=== PATIENT | female | born 1955 | race Caucasian/White ===

== ENCOUNTER → 2020-02-28 16:45 | Outpatient (CLI) | payer OTHER, SELFPAY ==
--- NOTE | ~2020-02-28 | XR_ITS ---
XR knee LT 3V DATE: 02/28/2020 17:16 INDICATION: Injury, pain TECHNIQUE: [place], AP, lateral views COMPARISON: None FINDINGS: There is prominent distention of the suprapatellar bursa, consistent with knee joint effusi on. There is a subtle vertical linear lucency overlying the lateral tibial plateau, suggesting a nondispl aced lateral tibial plateau fracture. Consider further evaluation with MRI of the knee. No other fracture or dislocation, periosteal reaction or bone destruction. No radiopaque intra-artic ular loose body or chondrocalcinosis. IMPRESSION: Knee joint effusion; suspected nondisplaced lateral tibial plateau fracture Reviewed, dictated and finalized at location A.
== END ==
PROVIDERS: PCP Family Medicine; Visit Provider Physician Assistant
DX: S89.90XA Unspecified injury of unspecified lower leg, initial encounter (principal); X58.XXXA Exposure to other specified factors, initial encounter; M25.462 Effusion, left knee
CPT/HCPCS: 73562

== ENCOUNTER → 2021-07-02 03:21 | Outpatient (CLI) | payer OTHER, SELFPAY ==
[2021-07-02 15:25] LABS: Influenza Control Positive
[2021-07-03 14:36] LABS: SARS-CoV-2 RNA PCR Positive
== END ==
PROVIDERS: PCP Family Medicine; Visit Provider Physician Assistant
DX: U07.1 COVID-19 (principal)
CPT/HCPCS: 87804; C9803; U0003; U0005

== ENCOUNTER 2021-10-25 11:08 | Emergency (ER) | payer OTHER, SELFPAY ==
[2021-10-25 11:15] VITALS: BP 169/84; PULSE 95; RESP 18; TEMP 36.9; O2SAT 100
--- NOTE | 2021-10-25 11:16 | ED.DENTAL ---
HPI - Dental/Oral General Chief complaint: Dental/Oral Stated complaint: face is swollen Time Seen by Provider: 10/25/21 11:17 Source: patient, RN notes reviewed and old records reviewed Mode of arrival: ambulatory Limitations: no limitations History of Present Illness HPI Narrative: 66-year-old female who presents to [facility] care with complaints of facial swelling and problems with dental abscess of front left tooth. Patient states that she broke off her tooth on the 26 of September and saw her dentist with in a few days and was told that she had an abscess in her gum and was placed on an antibiotic of Amoxicillin for 10 days which she completed.She reports that she finished antibiotics about 1 week ago. Last night she noted swelling to her left side of face and this morning swelling is worse with some tenderness to gum around broken off tooth.She state also that she has some pain and pressure to her face and has been taking Advil cold and sinus thinking she might have start of sinus infections also. Patient denies any fevers chills or sweats, denies any difficulty with her breathing or with swallowing. MD Complaint: tooth injury Location: Tooth # (#10) Onset (ago): day(s) (broke off tooth September 26) Treatment prior to arrival: other (tylenol cold and sinusc ompleted RX of amoxicillin) Related Data Home Medications Medication Instructions Recorded Confirmed aspirin 81 mg tablet,delayed 81 mg PO DAILY 07/03/20 01/01/21 release coenzyme Q10 10 mg capsule 10 mg PO ONCE 07/03/20 01/01/21 multivitamin 1 tablet PO DAILY 07/03/20 01/01/21 vitamin E 200 unit capsule 200 unit PO DAILY 10/09/20 01/01/21 Allergies Allergy/AdvReac Type Severity Reaction Status Date / Time No Known Allergies Allergy Verified 01/01/21 10:13 Review of Systems Review of Systems: CONSTITUTIONAL: Denies fever, chills, or sweats. EYES: Denies visual changes, redness, or discharge. ENT: Denies rhinorrhea, congestion, sore throat, or otalgia, positive for swelling to left side of face and broken off tooth in left upper front with swelling and redness of gum, metal post noted in gum. CARDIOVASCULAR: Denies chest pain, palpitations, or edema. RESPIRATORY: Denies cough or dyspnea. GASTROINTESTINAL: Denies abdominal pain, nausea, vomiting, or diarrhea. GENITOURINARY: Denies dysuria or hematuria. SKIN: Denies rash or itching. MUSCULOSKELETAL: Denies back pain, joint pain, or myalgia. NEUROLOGIC: Denies headache, numbness, or weakness. PSYCHIATRIC: Positive for history anxiety or depression. All systems reviewed & are unremarkable except as noted in HPI and below PMFSH Past Medical History Medical History Anxiety Arthritis Closed fracture of lateral portion of left tibial plateau Essential hypertension Hypothyroidism Left knee pain Mitral valve prolapse Mixed hyperlipidemia Recurrent major depressive disorder, in partial remission Seasonal allergies Shortness of breath Tobacco abuse Surgical History Surgical History H/O colonoscopy H/O foot surgery History of parathyroid surgery Family History Family History Other Arthritis Heart disease Hypertension Social History Social History Smoking packs per day: 0.5 Smoking cigarettes per day: 10.0 Years smoked: 40 Smoking pack-years: 20.00 Tobacco type: cigarettes Second hand tobacco smoke exposure: Yes Alcohol intake: current Alcohol use details: rare Substance use: never Substance use type: does not use Gender identity (if verbalized by the patient): Female Comments At time of signature, agree with nursing past medical, surgical, social and family history. There is no relevant family history pertinent to the presenting complaint Exam Narrative: GENERAL
== END 2021-10-25 11:48 | disposition home or self-care (01) ==
PROVIDERS: Emergency Provider Registered Nurse; PCP Family Medicine
DX: K04.7 Periapical abscess without sinus (principal); R22.0 Localized swelling, mass and lump, head; Z87.81 Personal history of (healed) traumatic fracture; I10 Essential (primary) hypertension; E03.9 Hypothyroidism, unspecified; E78.2 Mixed hyperlipidemia; Z79.01 Long term (current) use of anticoagulants; F17.210 Nicotine dependence, cigarettes, uncomplicated
CPT/HCPCS: 99213; G0463

== ENCOUNTER 2022-02-11 10:22 | Outpatient (CLI) | payer OTHER, SELFPAY ==
--- NOTE | ~2022-02-11 | MM_ITS ---
EXAMINATION: MM screening melquiades BI w bailey HISTORY: Screening mammogram TECHNIQUE: Craniocaudal and mediolateral oblique 3-D tomosynthesis images were obtained and synthetic 2-D images were generated. CAD analysis was submitted and interpreted. COMPARISON 07/18/2014 bilateral screening mammogram BREAST PARENCHYMAL COMPOSITION: There are scattered areas of fibroglandular density. FINDINGS: Stable fibroglandular asymmetry. Occasional benign calcifications. There is no evidence of suspicious mass, calcification, or architectural distortion to suggest malignancy in either breast. T here has been no suspicious interval change. IMPRESSION: 1. No mammographic evidence of malignancy. 2. Recommend routine screening mammography in one year. BI-RADS Category 2: Benign finding(s). Reviewed, dictated and finalized at location A.
== END 2022-02-11 10:23 | disposition home or self-care (01) ==
PROVIDERS: PCP Family Medicine; Visit Provider Family Medicine
DX: Z12.31 Encounter for screening mammogram for malignant neoplasm of breast (principal)
CPT/HCPCS: 77063; 77067

== ENCOUNTER 2022-10-21 09:52 | Outpatient (CLI) | payer OTHER, SELFPAY ==
--- NOTE | ~2022-10-21 | CT_ITS ---
EXAMINATION: CT lung screening DATE: 10/21/2022 10:15 INDICATION: Personal history nicotine dependence, current smoker with 44 pack year history TECHNIQUE: Computed tomography (CT) of the chest was performed without intravenous contrast. The dose -length product (DLP) was 72.63 mGy-cm. Automated exposure control and iterative reconstruction techn ique were employed. COMPARISON: None FINDINGS: There is mild emphysema. There is a 2 mm nodule of the right upper lobe. There is mild depe ndent atelectasis. No pleural effusion or pneumothorax. No pathologically enlarged thoracic lymph nod es are identified. The heart size is normal. There is moderate thoracic spondylosis. Low-density mas ses of the left adrenal gland, measuring up to 2.5 cm, are consistent with adenomas. IMPRESSION: 1. Lung-RADS category 2: Benign appearance or behavior. Continue annual screening with noncontrast lo w-dose chest CT in 12 months. Reviewed, dictated and finalized at location B. IMPRESSION: 1. Lung-RADS category 2: Benign appearance or behavior. Continue annual screeni ng with noncontrast low-dose chest CT in 12 months.
== END 2022-10-21 09:53 | disposition home or self-care (01) ==
PROVIDERS: PCP Family Medicine; Visit Provider Physician Assistant Medical
DX: Z12.2 Encounter for screening for malignant neoplasm of respiratory organs (principal); F17.210 Nicotine dependence, cigarettes, uncomplicated
CPT/HCPCS: 71271

== ENCOUNTER 2023-11-17 11:24 | Outpatient (CLI) | payer OTHER, SELFPAY ==
--- NOTE | ~2023-11-17 | CT_ITS ---
CT Scan of the Chest without Contrast: Clinical Indication: Lung cancer screening, nicotine dependence Technique: Contiguous sections were acquired throughout the chest without intravenous contrast. Dose reduction technique was used on this scan by utilizing automated exposure control and iterative recon struction technique. The dose-length product (DLP) was 99.09 mGy-cm. COMPARISON: 10/21/2022 Findings: There is no evidence of any significant mediastinal, hilar or axillary lymphadenopathy. The mediastin al soft tissues appear normal. There is no evidence of pleural or pericardial effusion. The lungs are clear. No pulmonary nodules or infiltrates are noted. Images through the upper abdomen reveal stable bilateral low-density adrenal nodules, compatible with adenomas.. Impression: Lung RADS 1: Negative. 12 month follow-up screening CT advised. Reviewed, dictated and finalized at location . Impression: Lung RADS 1: Negative. 12 month follow-up screening CT advised.
== END 2023-11-17 11:25 | disposition home or self-care (01) ==
PROVIDERS: PCP Family Medicine; Visit Provider Family Medicine
DX: Z12.2 Encounter for screening for malignant neoplasm of respiratory organs (principal); Z87.891 Personal history of nicotine dependence
CPT/HCPCS: 71271

== ENCOUNTER 2024-05-03 09:56 | Outpatient (CLI) | payer OTHER, SELFPAY ==
--- NOTE | ~2024-05-03 | MM_ITS ---
EXAMINATION: MM screening melquiades BI w bailey HISTORY: Screening TECHNIQUE: Craniocaudal and mediolateral oblique 3-D tomosynthesis images were obtained and synthetic 2-D images were generated. CAD analysis was submitted and interpreted. COMPARISON: Comparison to multiple prior studies sequentially, with oldest reviewed study dated 07/18. BREAST PARENCHYMAL COMPOSITION: Not dense: There are scattered areas of fibroglandular density. FINDINGS: There is no evidence of suspicious mass, calcification, or architectural distortion to sugg est malignancy in either breast. There has been no suspicious interval change. IMPRESSION: 1. No mammographic evidence of malignancy. 2. Recommend routine screening mammography in one year. BI-RADS Category 1: Negative Reviewed, dictated and finalized at location B. IC PHYSICIAN
== END 2024-05-03 09:57 | disposition home or self-care (01) ==
LOC: ANHIMG 09:57
PROVIDERS: PCP Family Medicine; Visit Provider Physician Assistant Medical
DX: Z12.31 Encounter for screening mammogram for malignant neoplasm of breast (principal)
CPT/HCPCS: 77063; 77067

== ENCOUNTER 2024-07-12 09:03 | Outpatient (CLI) | payer OTHER, SELFPAY ==
--- NOTE | ~2024-07-12 | DEXA_ITS ---
Bone Density Report Name: ARTHUR VIDES Age: 68 Sex: Female Ethnicity: White Date of : 1955 Indication: postmenopausal; screening for osteoporosis; height loss; Referring Provider: NICOLE LEIJA Study: Bone densitometry was performed. Exam Date: July 12, 2024 Accession number: [id number] Bone Density: Region BMD T-score Z-score Classification AP Spine(L1-L4) 0.902 -1.3 0.6 Osteopenia Femoral Neck (Left) 0.714 -1.2 0.4 Osteopenia Total Hip (Left) 0.811 -1.1 0.3 Osteopenia Femoral Neck (Right) 0.673 -1.6 0.1 Osteopenia Total Hip (Right) 0.787 -1.3 0.1 Osteopenia Total Hip Mean 0.799 -1.2 0.2 Osteopenia World Health Organization criteria for BMD impression classify patients as: Normal (T-score at or above -1.0), Osteopenia (T-score between -1.0 and -2.5), or Osteoporosis (T-score at or below -2.5). 10-year Fracture Risk(1): Major Osteoporotic Fracture 9.6% Hip Fracture 1.9% Reported Risk Factors: [place] (), Neck BMD=0.673, BMI=29.1, smoking (1) FRAX(R) Version 3.08. Fracture probability calculated for an untreated patient. Fracture probability may be lower if the patient has received treatment. Clinical Information Provided by Patient: Smokes Patient maximum height was 65.0 Menopause Age: 51 No regular weight bearing exercise Drinks caffeinated beverages Onset of menses at age 15 Number of children 0 Impression: The patient has low bone mass, based on the Right Femoral Neck T-score. The patient has an estimated ten-year risk of hip fracture of 1.9% and an estimated ten-year risk of major fracture of 9.6%, based on the WHO FRAX algorithm. The patient has risk factors, including: smoking. Discussion: BONE DENSITY IS LOW AT ONE OR MORE SKELETAL SITES. This patient's lowest T-score is low at one or more skeletal sites. It meets the World Health Organization's (WHO) criteria for ?low bone mass? (T-score between -1.0 and -2.5). The patient's 10-year risk of fracture as calculated by FRAX is less than the threshold where pharmacological therapy is recommended by the National Osteoporosis Foundation (NOF). However, all treatment decisions require clinical judgment and consideration of individual patient factors, including patient preferences, comorbidities, previous drug use, risk factors not captured in the FRAX model (e.g., frailty, falls, vitamin D deficiency, increased bone turnover, interval significant decline in bone density) and possible under or overestimation of fracture risk by FRAX. The patient should follow a healthful lifestyle (good nutrition with adequate calcium and vitamin D, and appropriate weight-bearing exercise). Follow-Up: Consider repeating this study in 2 to 3 years to reassess this patient's status, or sooner if there is some new clinical indication. Reported by: THERESA on 07/12/2024 9:37:00 AM. Reviewed, dictated and finalized at location AHali LOWE
== END 2024-07-12 09:04 | disposition home or self-care (01) ==
LOC: ANHIMG 09:09
PROVIDERS: PCP Family Medicine; Visit Provider Family Medicine
DX: Z78.0 Asymptomatic menopausal state (principal); M85.88 Other specified disorders of bone density and structure, other site; M85.852 Other specified disorders of bone density and structure, left thigh; M85.851 Other specified disorders of bone density and structure, right thigh
CPT/HCPCS: 77080

== ENCOUNTER 2024-08-21 11:29 | Outpatient (CLI) | payer OTHER, SELFPAY ==
--- NOTE | ~2024-08-21 | XR_ITS ---
CHEST RADIOGRAPH, PA AND LATERAL CLINICAL HISTORY: R06.00 - Dyspnea, unspecified . COMPARISON: None available TECHNIQUE: PA and lateral views of the chest. FINDINGS The cardiomediastinal silhouette is unremarkable. Peribronchial thickening identified bilaterally. Increased interstitial markings are identified bilaterally, findings suggesting mild pulmonary vascul ar congestion. The lungs are otherwise clear. IMPRESSION: Mild pulmonary vascular congestion with peribronchial thickening. No focal infiltrate or effusion. Reviewed, dictated and finalized at location A. ICIAN RELATIONS REPRESENTATIVE
--- NOTE | 2024-08-21 11:42 | ECG_ITS ---
Test Date: 2024-08-21 11:51:48 Measurements Intervals [place] Rate: 58 P: 61 KS: 169 QRS: 59 QRSD: 106 T: 46 QT: 394 QTc: 388 Interpretive Statements SINUS BRADYCARDIA MINIMAL Q WAVES- INFERIOR LEADS BASELINE ARTIFACT- I, II, III, AVR, AVL, AVF, V4-V5 BORDERLINE ECG No previous ECG available for comparison Electronically Signed On 08-21-2024 12:11:59 DRIER HELPER by Ronnell Walker D.O.
== END 2024-08-21 11:30 | disposition home or self-care (01) ==
LOC: ANHLAB 11:32 → ANHCARD 11:33
PROVIDERS: PCP Family Medicine; Visit Provider Student in an Organized Health Care Education/Training Program
DX: R07.9 Chest pain, unspecified (principal); R06.00 Dyspnea, unspecified; R94.31 Abnormal electrocardiogram [ECG] [EKG]
CPT/HCPCS: 71046; 93005

== ENCOUNTER 2024-09-01 13:45 | Outpatient (CLI) | payer OTHER, SELFPAY ==
--- NOTE | 2024-09-01 14:08 | ECHO_ITS ---
Patient Info Name: Kenia Pascual Age: 68 years : 1955 Gender: Female Ht: 65 in Wt: 163 lbs BSA: 1.86 m2 HR: 66 bpm BP: 123 / 78 mmHg Heart Rhythm: Sinus Rhythm Technical Quality: Fair Exam Date: 09/01/2024 2:15 PM Exam Location: Echo Lab Patient Status: Outpatient Admit Date: 09/01/2024 Staff Ordering Physician: Letty Frye PA-C Pantry Steward/Stewardess: Tracie De Santiago RDCS Attending Provider: Letty Frye PA-C Referring Physician: Uday TURNER; Exam Type: CA echo doppler color flow Study Info Indications - Nonrheumatic mitral valve prolapse Complete two-dimensional, color flow and Doppler transthoracic echocardiogram is performed. Summary 1. Complete two-dimensional, color flow and Doppler transthoracic echocardiogram is performed. 2. Left ventricular chamber dimension is normal. 3. Left ventricular systolic function is normal, estimated at 60-65%. 4. The left ventricular diastolic function is grade I diastolic dysfunction. 5. E/e' 8 is minimally elevated. 6. There is mild aortic valve sclerosis. 7. There is trace tricuspid valve regurgitation. 8. No pulmonary hypertension, estimated pulmonary arterial systolic pressure is 32 mmHg. 9. There is trivial pericardial effusion. Left Ventricle E/e' 8 is minimally elevated. Left ventricular chamber dimension is normal. Left ventricular systolic function is normal, estimated at 60-65%. The left ventricular diastolic function is grade I diastolic dysfunction. Right Ventricle Right ventricular systolic function is normal and with normal TAPSE 2.2 cm. Right ventricular chamber dimension is normal. Left Atria Left atrial chamber dimension is normal. Right Atria Right atrial chamber dimension is normal. Aortic Valve The aortic valve is trileaflet. There is mild aortic valve sclerosis. There is no aortic valve stenosis. There is no aortic valve regurgitation. Pulmonic Valve There is no pulmonic regurgitation. Mitral Valve There is no mitral valve stenosis. There is no mitral valve regurgitation. Tricuspid Valve There is trace tricuspid valve regurgitation. No pulmonary hypertension, estimated pulmonary arterial systolic pressure is 32 mmHg. Pericardium/Pleural There is trivial pericardial effusion. Inferior Vena Cava Normal inferior vena cava with >50% collapse upon inspiration consistent with normal right atrial pressure, 5 mmHg. Aorta The aortic root size at the sinus of Valsalva is normal. Left Ventricular Outflow Tract Name Value Normal LVOT 2D LVOT Diameter 2.0 cm LVOT Doppler LVOT Peak Velocity 115 cm/s LVOT Peak Gradient 5 mmHg LVOT Mean Gradient 2 mmHg LVOT VTI 19 cm LVOT VTI/AV VTI Ratio 0.7 LVOT Stroke Volume 58 ml LVOT CO 11.6 l/min LVOT CI 6.3 l/min/m2 Pulmonic Valve Name Value Normal RVOT Doppler RVOT Peak Gradient 2 mmHg PV Doppler PV Peak Velocity 82 cm/s PV Peak Gradient 3 mmHg Mitral Valve Name Value Normal MV Doppler MV Decel [place] 207 cm/s2 MV PHT 85 ms MV Area (PHT) 2.6 cm2 4.0-5.0 MV Diastolic Function MV E Peak Velocity 61 cm/s MV A Peak Velocity 94 cm/s MV E/A 0.6 MV Decel Time 294 ms MV Annular TDI MV Septal e' Velocity 5.7 cm/s >=8.0 MV E/e' (Septal) 10.6 <=8.0 MV Lateral e' Velocity 7.9 cm/s >=10.0 MV E/e' (Lateral) 7.7 <=8.0 MV e' Average 6.83 MV E/e' (Average) 9.2 Tricuspid Valve Name Value Normal TV Regurgitation Doppler TR Peak Velocity 258 cm/s TR Peak Gradient 21 mmHg Estimated PAP/RSVP RA Pressure 5 mmHg <=5 PA Systolic Pressure 32 mmHg <36 RV Systolic Pressure 32 mmHg <36 TV Annular TDI TV Lateral Muna s' Velocity 20.0 cm/s 9.5-18.7 Aortic Valve Name Value Normal AV Doppler AV Peak Velocity 134 cm/s AV Peak Gradient 7 mmHg AV Mean Gradient 4 mmHg AV VTI 28 cm AV Area (Cont Eq VTI) 2.1 cm2 >=3.0 AV Area (Cont Eq Max) 2.6 cm2 AV V1/V2 Ratio 0.86 AV Regurgitation 2D LVOT Area 3.0 cm2 Ventricles Name Value Normal LV Dimensions 2D/MM IVS Diastolic Thickness (2D) 1.0 cm 0.6-1.0 LVID Diastole (2D) 4.3 cm 3.8-5.2 LVIW Diastolic Thickness (2D) 1.1 cm 0.6-0.9 LVID Systole (2D) 2.7 cm 2.2-3.5 LVOT Diameter 2.0 cm LV Mass (2D Cubed) 149.57 g 67.00-162.00 LV Mass Index (2D Cubed) 80 g/m2 43-95 Relative Wall Thickness (2D) 0.51 LV Fractional Shortening/Ejection Fraction 2D/MM LV Fractional Shortening (2D) 37 % 27-45 LV EF (2D Teicholz) 67 % 54-74 LV Diastolic Volume (4C MOD) 69 ml LV EF (4C MOD) 70 % LV Diastolic Volume (2C MOD) 73 ml LV EF (2C MOD) 56 % LV Diastolic Volume (BP MOD) 71 ml 46-106 LV Diastolic Volume Index (BP MOD) 38 ml/m2 29-61 LV Systolic Volume (BP MOD) 26 ml 14-42 LV Systolic Volume Index (BP MOD) 14 ml/m2 8-24 LV EF (BP MOD) 63 % 54-74 LV Diastolic Length (4C) 7.9 cm LV Systolic Length (4C) 6.3 cm LV Stroke Volume (4C MOD) 48 ml Atria Name Value Normal LA Dimensions LA Volume (4C A-L) 55 ml LA Volume (BP A-L) 49 ml RA Dimensions RA Area (4C) 18.0 cm2 <=18.0 Report Signatures
== END 2024-09-01 13:46 | disposition home or self-care (01) ==
PROVIDERS: PCP Family Medicine; Visit Provider Student in an Organized Health Care Education/Training Program
DX: R00.2 Palpitations (principal); I34.1 Nonrheumatic mitral (valve) prolapse; I51.89 Other ill-defined heart diseases; I35.8 Other nonrheumatic aortic valve disorders
CPT/HCPCS: 93242; 93306

== ENCOUNTER 2024-11-29 09:23 | Outpatient (CLI) | payer OTHER, SELFPAY ==
--- NOTE | ~2024-11-29 | NM_ITS ---
EXAMINATION: NM lidia stress w perfusion DATE: 11/29/2024 12:00 INDICATION: Chest pain TECHNIQUE: Rest images were obtained following intravenous administration of 10.2 mCi Tc99m tetrofosm in (Myoview). The patient was infused intravenously with Lexiscan (Regadenoson). Then, 31.8 mCi Tc99m tetrofosmin (Myoview) was administered intravenously, and stress images were obtained. Data was geovanni nstructed into short axis and horizontal and vertical long axis SPECT images. Gated SPECT images were also obtained. COMPARISON: None. FINDINGS: There are a small mild reversible perfusion defects at the apical lateral segment and at th e mid inferolateral segment with normal perfusion throughout on the rest imaging. There is normal le ft ventricular chamber size, wall motion and ejection fraction. Left ventricular ejection fraction m easures >70%. IMPRESSION: 1. Small mild reversible perfusion defects at the apical lateral and mid inferolateral segments consi stent with ischemia in the circumflex coronary artery vascular distribution. 2. Left ventricular ejection fraction measuring >70%. Reviewed, dictated and finalized at location A. IMPRESSION: 1. Small mild reversible perfusion defects at the apical lateral and mid infero lateral segments consistent with ischemia in the circumflex coronary artery vas cular distribution. 2. Left ventricular ejection fraction measuring >70%.
--- NOTE | 2024-11-29 09:50 | EST_ITS ---
Patient Info Name: Kenia Pascual Age: 69 years : 1955 Gender: Female Ht: 65 in Wt: 162 lbs BSA: 1.85 m2 HR: 55 bpm BP: 116 / 77 mmHg Exam Date: 11/29/2024 9:50 AM Patient Status: O Admit Date: 11/29/2024 Exam Type: CA stress lidia w NM A regadenoson stress test was performed. Staff Referring Physician: Ronnell Walker DO Attending Provider: Ronnell Walker DO Exercise Technologist: Ivette Sawyer Exercise Physician: Ronnell Walker DO Summary 1. 1. Negative lexiscan stress test for ischemic ST changes by ECG criteria. 2. 2. Stable hemodynamics throughout the test. 3. 3. Nuclear scan to follow and will be reported separately. Please correlate with it. 4. 4. Patient informed of the above results. Protocol: Lexiscan Stress ECG Details Stage: REST Duration (min): 1 min : 19 sec HR (bpm): 58 SBP (mmHg): 116 DBP (mmHg): 77 Stage: REST Duration (min): 1 min : 42 sec HR (bpm): 55 SBP (mmHg): 116 DBP (mmHg): 77 Stage: REST Duration (min): 2 min : 29 sec HR (bpm): 55 SBP (mmHg): 116 DBP (mmHg): 77 Stage: REST Duration (min): 12 min : 29 sec HR (bpm): 58 SBP (mmHg): 116 DBP (mmHg): 77 Stage: STAGE 1 Duration (min): 0 min : 59 sec HR (bpm): 86 SBP (mmHg): 141 DBP (mmHg): 83 Stage: RECOVERY Duration (min): 1 min : 0 sec HR (bpm): 83 SBP (mmHg): 141 DBP (mmHg): 83 Stage: RECOVERY Duration (min): 2 min : 0 sec HR (bpm): 79 SBP (mmHg): 141 DBP (mmHg): 83 Stage: RECOVERY Duration (min): 3 min : 0 sec HR (bpm): 76 SBP (mmHg): 124 DBP (mmHg): 78 Stage: RECOVERY Duration (min): 3 min : 3 sec HR (bpm): 77 SBP (mmHg): 124 DBP (mmHg): 78 Rest HR: 58 bpm Peak HR: 93 bpm Rest Sys BP: 116 mmHg Peak Sys BP: 141 mmHg Max Pred HR: 152 bpm % Max Pred HR: 61 % Target HR: 129 bpm Max RPP: 13,113 bpm*mmHg Termination Reason: Completed protocol Cardiac Symptoms: Shortness of breath Total Time: 1 min : 0 sec Rest Archibald BP: 77 mmHg Peak Archibald BP: 83 mmHg Total Dose: 0.4 mg Resting ECG Sinus rhythm. Stress ECG No ST changes. Arrhythmias None. Report Signatures
== END 2024-11-29 09:24 | disposition home or self-care (01) ==
PROVIDERS: PCP Family Medicine; Visit Provider Internal Medicine Cardiovascular Disease
DX: R94.39 Abnormal result of other cardiovascular function study (principal); R07.9 Chest pain, unspecified
CPT/HCPCS: 78452; 93017; A9502; J2785

== ENCOUNTER 2025-04-04 08:25 | Outpatient (CLI) | payer OTHER, SELFPAY ==
[2025-04-24 12:42] VITALS: BMI 26.6
--- NOTE | 2025-04-24 12:42 | WPDHOMESLEEP ---
Sleep Study - Home Unattended Date of Study: 04/04/25 Ordering Provider: Ronnell Walker DO Interpreting Provider: Jennie Joel DO Home Sleep Study Type: Watch PAT Height: 1.68 m Weight: 74.843 kg Body Mass Index: 26.6 Neck Circumference (inches): 16 [place]: 7 Reason for Sleep Study Daytime hypersomnia Sleep History The patient is a 69-year-old female that had a sleep study ordered by her technical services coordinator for evaluation of sleep apnea. She denies awakening from sleep short of breath. She denies awakening at night with heartburn, belching or cough. She occasionally snores but is never loud enough that others complain. She occasionally has trouble sleeping when she has a cold. She rarely wakes up gasping for air throughout the night. She rarely has breathing problems at night observed by herself or others. She rarely sweats excessively at night. She rarely has heart palpitations or irregular heartbeats during the night. She rarely falls asleep during the day but never while driving. She denies sleep paralysis and cataplexy. She denies having trouble at school or work due to sleepiness. She rarely experiences vivid dreamlike scenes upon awakening or falling asleep. She denies feeling afraid of going to sleep. She occasionally has nightmares. She occasionally remembers her dreams. She rarely has thoughts racing through her mind. She rarely feels sad or depressed. She frequently has anxiety. She occasionally has muscular tension. She rarely notices parts of her body jerk. She denies kicking during the night. She occasionally has crawling and aching feelings in her legs and occasionally has leg pain during the night. She denies grinding her teeth during sleep and denies awakening with morning jaw pain. She is occasionally bothered by pain during the day but rarely awakened by pain during the night. She frequently wakes up feeling stiff in the morning. She rarely wakes with sore or achy muscles. She rarely wakes up with pain in the neck, spine and other joints. She goes to bed at midnight on weekdays and at 1:00 a.m. on the weekends. It takes her 5 minutes to fall asleep. She wakes up once throughout the night to urinate and is able to fall back asleep within a few minutes. She wakes up at 7:00 a.m. on weekdays and at 9:00 a.m. on the weekends. She typically gets 6 to 6-1/2 hours of sleep per night. She does not stay in bed after waking up in the morning. She currently lives alone. She does consume caffeinated beverages within 2 hours of bedtime. She denies engaging in physical exercise before bedtime. She will read before falling asleep. She denies taking naps in afternoon or the evening. She consumes 3 caffeinated beverages per day. She smokes half a pack of cigarettes per day. She denies alcohol and recreational drug use. [facility] Past Medical History Medical History Closed fracture of lateral portion of left tibial plateau Seasonal allergies Arthritis Anxiety Mitral valve prolapse Shortness of breath Left knee pain Essential hypertension Hypothyroidism Mixed hyperlipidemia Recurrent major depressive disorder, in partial remission Tobacco abuse Surgical History Surgical History H/O colonoscopy H/O foot surgery History of parathyroid surgery Family History Family History Other Arthritis Heart disease Hypertension Social History Social History Smoking packs per day: 0.5 Smoking cigarettes per day: 10.0 Years smoked: 40 Smoking pack-years: 20.00 Smoking status: Former smoker Tobacco type: cigarettes Second hand tobacco smoke exposure: Yes Alcohol intake: current Alcohol use details: rare Substance use: never Substance use type: does not use Lack of Transportation: No Lack of Food: Never True Current Housing: I Have Housing Concerned About Future Housing: No Difficulty Paying Gas/Electric Bills: No Difficulty Paying for Meds: No Currently Unemployed: No Education: High School Diploma/GED Living arrangements: alone Occupation/Education: occupation Gender identity (if verbalized by the patient): Female Spiritual care concerns: No Agree to blood products: Yes Medications Home Medications ?Medication ?Instructions ?Recorded ?Confirmed ?Type aspirin 81 mg tablet,delayed 81 mg PO DAILY 07/03/20 04/18/25 History release (Adult Low Dose Aspirin) coenzyme Q10 10 mg capsule (Co 10 mg PO ONCE 07/03/20 04/18/25 History Q-10) multivitamin 1 tablet PO DAILY 07/03/20 04/18/25 History vitamin E 200 unit capsule 200 unit PO DAILY 10/09/20 04/18/25 History levothyroxine 88 mcg tablet 88 mcg PO DAILY #90 tabs 11/24/24 04/18/25 Rx (Euthyrox) atorvastatin 10 mg tablet (Lipitor) 10 mg PO DAILY #30 tabs 12/06/24 04/18/25 Rx levocetirizine 5 mg tablet (Xyzal) 5 mg PO DAILY 12/06/24 04/18/25 History losartan 100 mg tablet 100 mg PO DAILY #90 tabs 12/20/24 04/18/25 Rx metoprolol succinate 25 mg See Rx Instructions .Route 04/09/25 04/18/25 Rx tablet,extended release 24 hr .COMPLEX #30 tabs hydrochlorothiazide 12.5 mg tablet See Rx Instructions .Route 04/18/25 04/18/25 Rx .COMPLEX #30 tabs Sleep Procedure The sleep study was completed using 360TT a technically adequate device with seven channels: peripheral arterial tone, actigraphy, body position, snore, respiratory movement, pulse oximetry, sleep staging, and heart rate. Prior to using the device, the patient received verbal and written instructions for its application and was provided with the help desk phone number for additional telephonic instruction with 24-hour availability of qualified personnel to answer questions. The study was scored using CMS guidelines. Sleep Architecture Sleep Architecture The total recording time is 6 hrs, 16 min. The total sleep time is 5 hrs, 17 min. Sleep latency is 19 minutes. REM latency is 137 minutes. The patient had 7 episodes of waking. Sleep architecture shows 11.5% deep sleep, 70.7% light sleep, and (as % Total Sleep Time) showed NREM (Light 70.7%; Deep 11.5%), and a 17.8% stage REM. The patient spent 16.9% of total sleep time in the supine position. Sleep efficiency was 84.31. Respiratory Analysis The overall AHI (pAHI 4%:) is 2.3. The overall AHI (pAHI 3%:) is 6.6. The central AHI is 1.2. The AHI was 5.2 in NREM and 12.8 in REM sleep. The AHI was 19.1 in Supine and 4.0 in Non-supine sleep. Percent of [place] Valenzuela respirations is 0.0. Oximetry Data The oxygen desaturation index (NICOLE 4%:) is 1.0. The mean saturation is 94%, and the lowest saturation is 90%. Time spent with saturation < 88% is 0.0 minutes. Snoring Profile Snoring average intensity is 44 dB. The patient snored above 45 decibels for 109.5 minutes, 34.5% of sleep time. Cardiac Profile The average pulse rate is 59 beats per minutes. The lowest pulse rate is 48 bpm. The highest pulse rate reported is 76 bpm. Atrial fibrillation was not detected. Premature beats occur <0.1 per minute. Assessment and Plan Assessment and Plan (1) Sleep disturbances: Code(s): G47.9 - Sleep disorder, unspecified Status: Acute Assessment and Plan: The patient had an overall AHI of 2.3 with desaturation down to 90%. This is not consistent with sleep-disordered breathing. If there are further concerns for a sleep disorder, I recommend that the patient have a split study with the use of a hypnotic to ensure we obtain enough sleep data. Data The data obtained during this sleep study is adequate for interpretation. Certification This sleep study has been reviewed by a board certified sleep medicine physician.
== END 2025-04-05 10:02 | disposition home or self-care (01) ==
LOC: ANHCSM 08:26
PROVIDERS: PCP Family Medicine; Visit Provider Internal Medicine Cardiovascular Disease
DX: G47.9 Sleep disorder, unspecified (principal); G47.10 Hypersomnia, unspecified; I10 Essential (primary) hypertension
CPT/HCPCS: 95800